=== PATIENT | female | born 1995 | race Caucasian/White ===

== ENCOUNTER 2017-09-05 14:28 | Emergency (ER) | payer OTHER ==
[2017-09-05 14:35] VITALS: TEMP 98.1
--- NOTE | 2017-09-05 14:39 | EDPHY ---
H & P Stated Complaint: L sided CP/SOB since this am;recent card ablation for SVT HPI/ROS: CHIEF COMPLAINT: Chest pain, shortness of breath. HISTORY OF PRESENT ILLNESS: This patient is a 22 year old female with history of SVT and recent cardiac ablation on 08/13/17 arriving with her parents complaining of left-sided chest tightness, left-sided upper extremity paresthesias, and shortness of breath onset today. She underwent cardiac ablation 08/13/[address] Seo at [facility] in [place], [place]. Since that time, she has had recurrent "heart pains", sensation of a rapid heartbeat. Today, she has upper left chest pain, which her father at bedside states has been consistent and achy. She has associated left-sided arm pain and shortness of breath. She and her family spoke with her mica paster in [place] today. He recommends an echocardiogram, and the family states he would like to review this. She is not currently anticoagulated, taking Aspirin only. She did take Eliquis for 1.5 weeks following her ablation procedure. She denies fever, recent cold or cough, diarrhea, urinary complaints, or other associated symptoms. She also reports intermittent nausea and has vomited about two times per day. Her last menstrual period began 09/03/17. She last vomited around 11am this morning. She has been taking estradiol and progesterone since March for hormone imbalance that she has been told the secondary to Lyme disease. REVIEW OF SYSTEMS: A ten point review of systems was performed and is negative with the exception of the items mentioned in the HPI. Past medical history: 1. Hyperthyroid. (TSH low, T4 normal.) 2. History of Lyme disease (Estradiol, progesterone) 3. Depression (Trintellix) Past surgical history: 1. Cardiac ablation 08/13/[address] Topher Seo in [place], [place]. Family history: Cardiac arrhythmia. Social history: Student. Parents at bedside. Nonsmoker. General Appearance: Alert. Vital signs reviewed. Eyes: Pupils equal and round, no conjunctival injection, no discharge. Anicteric. ENT, Mouth: Mucous membranes are moist, no oropharyngeal erythema or edema. Neck: No lymphadenopathy, supple. Respiratory: Lungs are clear to auscultation; no wheezes, rales, or rhonchi. Cardiovascular: Regular rate and rhythm; no murmur, rub, or gallop. Gastrointestinal: Abdomen is soft and nontender, no masses or organomegaly, bowel sounds normal. Skin: Warm and dry, no rashes on exposed skin, normal color. Back: Nontender to palpation over the thoracolumbar spine. No CVAT. Extremities: No lower extremity edema, no calf tenderness or swelling. Neurological: Alert and oriented. Moving all four extremities easily and equally. Psychiatric: Normal affect. - Personal History LMP (Females 10-55): Now Current Tetanus Diphtheria and Acellular Pertussis (TDAP): Yes - Medical/Surgical History Hx Cardiac Disease: Yes Other PMH: cardiac ablation 08/13/2017 for SVT. Lymes disease - Social History Smoking Status: Never smoked Constitutional: Initial Vital Signs Temperature (C) 36.7 C 09/05/17 14:31 Heart Rate 112 H 09/05/17 14:31 Respiratory Rate 18 09/05/17 14:31 Blood Pressure 105/80 09/05/17 14:31 O2 Sat (%) 97 09/05/17 14:31 O2 Delivery Mode Room Air Allergies/Adverse Reactions: dairy Allergy (Uncoded 09/05/17 14:36) gluten Allergy (Uncoded 09/05/17 14:36) Home Medications: Medication Instructions Recorded Estradiol [Estradiol 1 MG (*)] 1 mg PO DAILY 09/05/17 Vortioxetine Hydrobromide 5 mg PO 09/05/17 [Brintellix] Medical Decision Making - Diagnostics Imaging Results: Imaging Impressions Chest X-Ray 09/05/17 14:53 Impression: Normal. Imaging: I viewed and interpreted images myself ED Course/Re-evaluation: 22 year old female s/p cardiac ablation 08/13/17 presents with left-sided chest tightness, left arm paresthesias, and shortness of breath. Exam unremarkable. IV established. Plan for EKG, echocardiogram, labs including CBC, BMP, troponin , D-dimer, TSH, BHCG. 15:15 Echocardiogram tech at bedside. Reviewed chest x-ray. Negative for acute processes. Reviewed laboratory studies. Troponin and D-dimer negative. Normal echocardiogram per report by Dr. Schaefer, mica paster. 16:[address] Schaefer, mica paster. He spoke with Dr. Seo's office regarding the patient's electrocardiogram report. Dr. Seo is out of the office today. Plan to discharge home in good condition with copies of the echocardiogram, x- ray, and laboratory reports. She will follow up with her primary care provider and mica paster. She has also been referred to a local mica paster. She has been advised to try ibuprofen on a regular basis for her chest pain. She and her parents were reassured that today's evaluation did not reveal a life- threatening or serious illness. She has not had a rapid heartbeat in the emergency department. I have not seen evidence of anxiety. She has a normal D-dimer in based on Well's criteria P is low probability. Chest x-ray does not show pneumothorax or infiltrate or other other evidence of an acute pulmonary process. I do not suspect an acute coronary syndrome. No evidence of pericarditis on echo, physical exam, or EKG. Etiology of her chest discomfort remains unclear. - Data Points Laboratory Results: Laboratory Results 09/05/17 15:03 09/05/17 15:03 09/05/17 09/05/17 09/05/17 15:03 15:03 15:03 WBC RBC Hgb Hct MCV MCH MCHC RDW Plt Count MPV Neut % (Auto) Lymph % (Auto) [place] % (Auto) Eos % (Auto) Baso % (Auto) Nucleat RBC Rel Count Absolute Neuts (auto) Absolute Lymphs (auto) Absolute Monos (auto) Absolute Eos (auto) Absolute Basos (auto) Absolute Nucleated RBC Immature Gran % Immature Gran # D-Dimer 0.44 ug/mLFEU ug/mLFEU (0.00-0.50) Sodium 143 mEq/L mEq/L (134-144) Potassium 3.4 mEq/L L mEq/L (3.5-5.2) Chloride 105 mEq/L mEq/L (97-110) Carbon Dioxide 26 mEq/l mEq/l (22-31) Anion Gap 12 mEq/L mEq/L (8-16) BUN 5 mg/dL L mg/dL (7-23) Creatinine 0.5 mg/dL L mg/dL (0.6-1.0) Estimated GFR > 60 Glucose 85 mg/dL mg/dL (70-100) Calcium 9.5 mg/dL mg/dL (8.5-10.4) Troponin I < 0.012 ng/mL ng/mL (0.000-0.034) TSH 0.359 uIU/mL L uIU/mL (0.465-4.680) Beta HCG, Qual NEGATIVE 09/05/17 15:03 WBC 4.08 10^3/uL 10^3/uL (3.80-9.50) RBC 4.15 10^6/uL L 10^6/uL (4.18-5.33) Hgb 13.3 g/dL g/dL (12.6-16.3) Hct 38.0 % % (38.0-47.0) MCV 91.6 fL fL (81.5-99.8) MCH 32.0 pg pg (27.9-34.1) MCHC 35.0 g/dL g/dL (32.4-36.7) RDW 12.8 % % (11.5-15.2) Plt Count 262 10^3/uL 10^3/uL (150-400) MPV 8.5 fL L fL (8.7-11.7) Neut % (Auto) 66.0 % % (39.3-74.2) Lymph % (Auto) 26.0 % % (15.0-45.0) [place] % (Auto) 6.9 % % (4.5-13.0) Eos % (Auto) 0.2 % L % (0.6-7.6) Baso % (Auto) 0.7 % % (0.3-1.7) Nucleat RBC Rel Count 0.0 % % (0.0-0.2) Absolute Neuts (auto) 2.69 10^3/uL 10^3/uL (1.70-6.50) Absolute Lymphs (auto) 1.06 10^3/uL 10^3/uL (1.00-3.00) Absolute Monos (auto) 0.28 10^3/uL L 10^3/uL (0.30-0.80) Absolute Eos (auto) 0.01 10^3/uL L 10^3/uL (0.03-0.40) Absolute Basos (auto) 0.03 10^3/uL 10^3/uL (0.02-0.10) Absolute Nucleated RBC 0.00 10^3/uL 10^3/uL (0-0.01) Immature Gran % 0.2 % % (0.0-1.1) Immature Gran # 0.01 10^3/uL 10^3/uL (0.00-0.10) D-Dimer Sodium Potassium Chloride Carbon Dioxide Anion Gap BUN Creatinine Estimated GFR Glucose Calcium Troponin I TSH Beta HCG, Qual Medications Given: Discontinued Medications Sodium Chloride (Ns) 1,000 mls @ 0 mls/hr IV ONCE ONE PRN Reason: Wide Open Stop: 09/05/17 15:47 Last Admin: 09/05/17 15:49 Dose: 1,000 mls Departure - Departure Disposition: Home, Routine, Self-Care Clinical Impression: Atypical chest pain Condition: Good Instructions: Chest Pain (ED) Additional Instructions: 1. Follow up with your primary care and/or mica paster for further evaluation if pain persists. We have also given you a referral to a local mica paster. 2. Take 600mg ibuprofen every 6-8 hours with food as needed for pain. 3. Return to the emergency department for increased chest pain, shortness of breath, fever, or other worsening of condition. Referrals: Joanne Nicole [Primary Care Provider] - As per Instructions Brent Miramontes MD [Medical Doctor] - As per Instructions Report Scribed for: Peggy Magana Report Scribed by: [place] Date of Report: 09/05/17 Time of Report: 16:49 Physician Review and Approval Statement: 09/05/17 14:38 Portions of this note were transcribed by the medical office coordinator. I, Dr. Peggy Magana, personally performed the history, physical exam, and medical decision- making; and confirmed the accuracy of the information in the transcribed note.
--- NOTE | 2017-09-05 15:12 | CPEKG ---
Heart Rate: 81 RR Interval: 741 P-R Interval: 140 QRSD Interval: 100 QT Interval: 380 QTC Interval: 441 P [place]: 66 QRS [place]: 56 T Wave [place]: 44 EKG Severity - NORMAL ECG - EKG Impression: SINUS RHYTHM EKG Impression: artifact in I,II,III Electronically Signed By: Peggy Magana 05-Sep-2017 17:12:55
[2017-09-05 15:20] LABS: % IMMATURE GRANULYOCYTES 0.2 % (0.0-1.1); ABSOLUTE IMMATURE GRANULOCYTES 0.01 10^3/uL (0.00-0.10); ADD DIFF? NO; ADD MORPH? NO; ADD SCAN? NO; ATYPICAL LYMPHOCYTE FLAG 0 (0-99); FRAGMENT RBC FLAG 0 (0-99); HEMOGLOBIN 13.3 g/dL (12.6-16.3); LEFT SHIFT FLG 0 (0-99); LIPEMIA HEMOLYSIS FLAG 90 (0-99); MEAN CELL VOLUME 91.6 fL (81.5-99.8); MEAN PLATELET VOLUME 8.5 fL (8.7-11.7); PLATELET CLUMPS FLAG 0 (0-99); PLATELET COUNT 262 10^3/uL (150-400); RED BLOOD CELL COUNT 4.15 10^6/uL (4.18-5.33); RED CELL DISTRIBUTION WIDTH 12.8 % (11.5-15.2)
[2017-09-05 15:34] LABS: ANION GAP 12 mEq/L (8-16); CALCIUM 9.5 mg/dL (8.5-10.4); CARBON DIOXIDE 26 mEq/l (22-31); CHLORIDE 105 mEq/L (97-110); CREATININE 0.5 mg/dL (0.6-1.0); GLOMERULAR FILTRATION RATE > 60; GLUCOSE 85 mg/dL (70-100); POTASSIUM 3.4 mEq/L (3.5-5.2); SODIUM 143 mEq/L (134-144)
[2017-09-05] MEDS ORDERED: NS 1,000 ML IV ONE (15:46)
[2017-09-05 15:48] VITALS: BP 119/68
--- NOTE | 2017-09-05 15:51 | ECHO ---
[email or web address] [address] [address] Main: [phone] Fax: Transthoracic Echocardiogram Name: LEEROY RIVAS MR#: [id number] Study Date: 09/05/2017 Study Time: 03:28 PM Date of : 1995 Age: 22 year(s) Height: 177.8 cm (70 in.) Weight: 58.97 kg (130 lb.) BSA: 1.74 m2 Gender: Female Examination: Echo Indication: Chest pain/s/p ablation for SVT on 08/11 Image Quality: Contrast: Requested by: Peggy Magana BP: 119 mmHg/68 mmHg Heart Rate: Rhythm: Indication: Chest pain/s/p ablation for SVT on 08/11 Procedure Staff [employer]cher[employer] Inspector: Misty Low Physician: Bryn Schaefer Requesting Provider: Conclusions: Normal study Measurements: Chambers Valvular Assessment AV/MV Valvular Assessment TV/PV Normal Normal Normal Name Value Range Name Value Range Name Value Range Ao Chely (MM): 3.2 cm (2.2 cm-3.7 AV Vmax: 1.23 m/s (1 m/s-1.7 cm) m/s) IVSd (2D): 0.6 cm (0.6 cm-1.1 AV maxP mmHg ( - ) cm) AV meanP mmHg ( - ) LVDd (2D): 5.3 cm (3.9 cm-5.3 MV E Vmax: 0.84 m/s ( - ) cm) MV A Vmax: 0.52 m/s ( - ) LVDs (2D): 3.6 cm (2.1 cm-4 MV E/A: 1.62 ( - ) cm) LVPWd (2D): 0.7 cm ( - ) LVEF (MOD4): 71 % (>=55 %) Continued Measurements: Chambers Valvular Assessment AV/MV Name Value Name Value LADs: 3.9 cm MV E/E' Septal: 8.00 LADs Lon.3 cm MV E/E' Lateral: 7.20 LA Area: 18.7 cm2 Additional Vessels Name Value Ao Ascendin.8 cm Patient: LEEROY RIVAS Study Date: 09/05/2017 Page 1 of 2 03:28 PM Findings: Left Ventricle: Normal size left ventricle. No LV hypertrophy. Normal global systolic LV function. EF is 71 %. No regional wall motion abnormality. Right Ventricle: Normal size right ventricle. Left Atrium: The left atrium is normal in size. Right Atrium: The right atrium is normal in size. Mitral Valve: The mitral valve is normal in appearance and function. Mild mitral valve regurgitation is present. Aortic Valve: The aortic valve is normal in appearance and function. Tricuspid Valve: The tricuspid valve is normal in appearance and function. Mild tricuspid regurgitation is present. Pulmonic Valve: The pulmonic valve is normal in appearance and function. Trivial pulmonic valve regurgitation. Aorta: The aorta is normal. Pericardium: No pericardial effusion. (No Signature Object) Patient: LEEROY RIVAS Study Date: 09/05/2017 Page 2 of 2 03:28 PM [id number]
[2017-09-05 16:05] LABS: TROPONIN I < 0.012 ng/mL (0.000-0.034)
[2017-09-05 16:24] VITALS: PULSE 89
[2017-09-05 17:11] VITALS: RESP 20; O2SAT 97
== END 2017-09-05 17:11 | disposition home or self-care (01) ==
DX: R07.89 Other chest pain (principal); R11.2 Nausea with vomiting, unspecified

== ENCOUNTER 2017-12-17 20:35 | Emergency (ER) | payer OTHER ==
[2017-12-17 21:07] VITALS: BP 125/74; PULSE 95; RESP 20; TEMP 98.4; O2SAT 96
== END 2017-12-17 21:36 | disposition left against medical advice (07) ==
DX: Z53.21 Procedure and treatment not carried out due to patient leaving prior to being seen by health care provider (principal)

== ENCOUNTER → 2018-04-21 | Outpatient (CLI) | payer OTHER ==
[~2018-04-21] MED LIST: GADOBUTROL 10 ML VIAL IVP ONE
== END ==
LOC: FIMAGING 07:02
PROVIDERS: ATTEND Nurse Practitioner
DX: D35.2 Benign neoplasm of pituitary gland (principal)
CPT/HCPCS: A9585